=== PATIENT | male | born 1980 | race Caucasian/White ===

== ENCOUNTER 2020-04-01 03:13 | Emergency (ER) | payer OTHER, SELFPAY ==
[2020-04-01 03:14] VITALS: BP 164/95; PULSE 77; RESP 16; TEMP 36.2; O2SAT 99; BMI 22.6
--- NOTE | 2020-04-01 03:28 | ED.DCSUM_ITS ---
History of Present Illness Chief Complaint: Flank Pain Informant: Patient, Significant Other - Abdominal Pain/Flank Pain Onset: Hours - 1 Context: Sudden Onset Timing: Continuous, Waxes and wanes Quality: Aching Location: Left Flank Current Severity: Severe Maximum Severity: Severe Worsened by: Nothing Relieved by: Nothing - Nausea/Vomiting/Emesis GI Symptom: Nausea. Negative for: Vomiting - Diarrhea/Melena/Hematochezia GI Symptom: Negative for: Diarrhea, Melena, Hematochezia Associated Symptoms: Negative for: Dysuria, Frequency, Hematuria, Urgency Narrative: Patient with a longstanding history of kidney stones, he states he has never needed surgical intervention and has passed them all. Has not seen a urologist in about 10 years. Had sudden onset of severe similar symptoms with other stones in the past. Left-sided discomfort radiating into the back and down to his left testicle. No urinary symptoms or fevers, nauseated but no vomiting yet. No history of any other abdominal surgeries. Prior similar symptoms: Yes - Multiple, with kidney stones Recent Illness/Hospitalization: No - Past Medical History (1) Kidney stones Status: Chronic Past Medical History - Allergies and Home Meds Allergies/Adverse Reactions: Allergies No Known Allergies Allergy (Verified 04/01/20 03:17) Primary Care Physician: Lazarus Angel MD [STAFF PHYSICIAN] - 1 Week if not improving Vega Crowley DO [Primary Care Provider] - Lives: Spouse/ Significant Other Smoking Status: Former smoker Review of Systems General: Denies: Chills, Fever, Sweats Eyes: Denies: Visual changes - bilaterally, Diplopia ENT: Denies: Rhinorrhea, Sore throat Cardiovascular: Denies: Chest pain, Palpitations Respiratory: Denies: Dyspnea, Cough, Dyspnea on exertion Gastrointestinal: Reports: Abdominal pain, Nausea. Denies: Vomiting, Diarrhea, Melena, Hematochezia Genitourinary: Denies: Dysuria, Hematuria, Frequency Musculoskeletal: Reports: Back pain. Denies: Extremity Pain Skin: Denies: Rash, Wounds Neurological: Denies: Headache, Weakness, Numbness Physical Exam Vital Signs/Narrative: Vital Signs Temp Pulse Resp BP Pulse Ox 04/01/20 03:14 97.1 F L 77 16 164/95 H 99 Inital Vital Signs reviewed: Yes General: Well nourished, Well developed, Acute Distress - Pain, uncomfortable, pacing the room Head: Normocephalic, Atraumatic Eyes: Perrl, EOMI ENT: Moist mucous membranes, No rhinorrhea Neck: Supple, Nontender Cardiovascular: Regular rate, Regular rhythm, No murmurs Respiratory: No distress, CTA bilaterally, Chest nontender Abdomen: Soft, Nontender, Nondistended, Normal bowel sounds Back: Normal Inspection, CVA tenderness - Left only. Normal inspection no rash.. Negative for: Spinal tenderness Extremities: Nontender, No edema Skin: Normal color, No rash, No Trauma Neurological: Alert, Oriented x3, Cranial nerves II-XII grossly intact, Normal Strength, Normal Sensation, Normal Gait Psychological: Normal affect, Normal Mood Diagnostic/Tx/Re-eval Laboratory Results 04/01/20 04:23 Urine Color Yellow Urine Clarity Sl. Cloudy Urine pH 6.0 Ur Specific [place] 1.020 Urine Protein 15 H Urine Glucose (UA) Normal Urine Ketones Negative Urine Occult Blood 150 H Urine Nitrite Negative Urine Bilirubin Negative Urine Urobilinogen 1 H Ur Leukocyte Esterase Negative Urine RBC 0-5 SEEN Urine WBC 0-5 SEEN Ur Squamous Epith Cells 0 SEEN Amorphous Sediment 2+ Urine Bacteria 3+ Hyaline Casts 0-5 SEEN Urine Mucus 1+ - Medical Decision Making After IV Zofran, Toradol, morphine, patient is feeling much better his symptoms are well controlled. Urine shows no signs of infection. Certainly suspect his symptoms are caused from a kidney stone, and for all intents and purposes expectant management is indicated along with symptom control. He is in agreement and comfortable with discharge with prescriptions and outpatient urologic follow-up as needed, or certainly welcome to return if symptoms are uncontrollable. Given his history of passing all of his stones I do not think he needs to have another CT today and he is in agreement. ED Disposition - Plan for ED Patient: Disposition: Home or Assisted Living Diagnosis: Ureteral colic, Renal colic on left side Instructions: ED Renal Stone w Colic Prescriptions: Oxycodone HCl/Acetaminophen [Percocet 5/325] 1 tab PO Q6H PRN PRN 3 Days #12 tab PRN Reason: Pain Prescription Printed Ondansetron [Zofran Odt] 8 mg PO Q8H PRN PRN #20 tab PRN Reason: Nausea Prescription Printed Referrals: Vega Crowley DO [Primary Care Provider] - Lazarus Angel MD [STAFF PHYSICIAN] - 1 Week if not improving
[2020-04-01] MEDS: Ketorolac 30 MG/ML Syringe IV (03:37)
[2020-04-01] MEDS: Ondansetron 4 MG/2 ML Vial IV (03:37)
[2020-04-01] MEDS: Morphine 4 MG/ML Syringe IV (03:37)
[2020-04-01 04:29] LABS: Squamous Epithelial Cells - UA 0 SEEN /hpf (0-5)
[2020-04-01 04:31] LABS: Color, Urine Yellow (Yellow); Glucose, Dipstick Normal (Normal); Ketone-Dipstick Negative (Negative); Leukocyte Esterase-Dipstick Negative /ul (Negative); Nitrite-Dipstick Negative (Negative); Occult Blood-Urine 150 /ul (Negative); Protein-Dipstick 15 mg/dl (Negative); Urine Bilirubin Dipstick Negative (Negative); Urine Clarity Sl. Cloudy (Clear); Urine Urobilinogen 1 mg/dl (Normal)
[2020-04-01 05:21] LABS: Amorphous Sediment 2+; Bacteria 3+ /hpf (None Seen)
[2020-04-01 05:22] LABS: Mucous, Urine 1+ /hpf (<or=2+); Red Blood Cells-Urine 0-5 SEEN /hpf (0-5); White Blood Cells 0-5 SEEN /hpf (0-5)
[2020-04-01 05:23] LABS: Hyaline Cast 0-5 SEEN /lpf (0-5)
[2020-04-01 05:33] VITALS: PULSE 82; RESP 16; O2SAT 99
== END 2020-04-01 05:34 | disposition home or self-care (01) ==
PROVIDERS: Emergency Provider Emergency Medicine; PCP Family Medicine
DX: N23 Unspecified renal colic (principal); Z79.899 Other long term (current) drug therapy; Z87.442 Personal history of urinary calculi; Z87.891 Personal history of nicotine dependence
CPT/HCPCS: 81001; 96374; 96375; 99281; A4216; J2405